=== PATIENT | female | born 2000 | race Caucasian/White ===

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

== ENCOUNTER 2022-11-06 22:53 | Inpatient (IN) | payer MEDICAID, OTHER ==
[2022-11-06 23:43] LABS: RUPTURE OF MEMBRANES PLUS POSITIVE (NEGATIVE)
[2022-11-07] MEDS ORDERED: TERBUTALINE 1 MG/ML VIAL SUBQ PRN (00:42)
[2022-11-07] MEDS ORDERED: SODIUM CHLORIDE FLUSH 0.9% 10 ML SYRINGE IVP PRN (00:42)
[2022-11-07] MEDS ORDERED: TRANEXAMIC ACID IN NACL 1,000 MG/100 ML BAG IV PRN (00:42)
[2022-11-07] MEDS ORDERED: CARBOPROST TROMETHAMINE 250 MCG/ML AMP IM PRN (00:42)
[2022-11-07] MEDS ORDERED: OXYTOCIN 10 UNIT/ML VIAL IM PRN (00:42)
[2022-11-07] MEDS ORDERED: miSOPROStoL 200 MCG TABLET PR PRN (00:42)
[2022-11-07] MEDS ORDERED: lidocaine 1% 20 ML MDV ID PRN (00:42)
[2022-11-07] MEDS ORDERED: LABETALOL 20 MG/4 ML SYRINGE IVP PRN ×3 (00:42)
[2022-11-07] MEDS ORDERED: hydrALAZINE INJ 20 MG/ML VIAL IVP PRN ×2 (00:42)
[2022-11-07] MEDS ORDERED: METHYLERGONOVINE 0.2 MG/ML VIAL IM PRN (00:42)
[2022-11-07] MEDS ORDERED: fentaNYL 100 MCG/2 ML VIAL IVP PRN (00:42)
[2022-11-07] MEDS ORDERED: NIFEdipine 10 MG CAPSULE PO PRN (00:42)
[2022-11-07] MEDS ORDERED: OXYTOCIN/SODIUM CHLORIDE 500 ML IV PRN (00:42)
[2022-11-07] MEDS ORDERED: AMPICILLIN 2 GM in SODIUM CHLORIDE 0.9% MINIBAG 100 ML IV ONE (00:42)
--- NOTE | 2022-11-07 00:42 | PROVIDER PROGRESS NOTE ---
- HPI Chief Complaint: Labor Current : Current EDU 11/29/22 Gestation 36 Weeks and 5 Days 1 Para 0 Vital Signs Temperature 37.5 C 11/06/22 23:14 Temperature 37.5 C 11/06/22 23:14 Heart Rate 90 11/06/22 23:51 Respiratory Rate 17 11/06/22 23:51 Blood Pressure 132/73 H 11/06/22 23:51 O2 Saturation If not protocol: Oxygen Flow, liters/minute - Procedures OB Procedure Performed: NST Diagnosis/Indication for NST: Other NST Procedure: NST Procedure Start Date 11/06/22 Start Time 23:08 Vibroacoustic Stimulation Used No Patient States Movement Yes - Plan Plan: Duyen presents to [facility] with c/o vaginal leakage of clear fluid. She reports initially thinking that she just had to urinate but then after voiding she continued to leak fluid every time she stood up. She denies contractions and reports +FM. She denies vaginal bleeding. NST reactive. FHR baseline 150s, moderate variability, + accels, no decels Contractions palpate mild every 2-4 minutes with soft resting tone ROM+ positive. Assessment: 22yo @ 36.6wks gestation PPROM GBS status unknown FHR Category I Plan: Admit to [facility] for expectant management. Intermittent heart rate auscultation Initial Ampicillin for GBS prophylaxis per protocol. Encouraged ambulation and position changes. Anticipate .
--- NOTE | 2022-11-07 00:47 | HISTORY & PHYSICAL EXAMINATION ---
Admit History - Visit Reason Visit Reason: Membranes rupture - : 1 Parity: 0 Premature: 0 Ectopic: 0 : 0 Care: positive: [facility] Risk/History: positive: None Complications This : positive: None Smoking Status: Never smoker - Mother's Labs Mother's Blood Type: positive: B Mother's RH: positive: Positive GBS: positive: Other Rubella Status: positive: Immune - HPI Diagnosis/Indication for NST: Other Current EDU 11/29/22 Gestation 36 Weeks and 5 Days 1 Para 0 Vital Signs Temperature 37.5 C 11/06/22 23:14 Temperature 37.5 C 11/06/22 23:14 Heart Rate 90 11/06/22 23:51 Respiratory Rate 17 11/06/22 23:51 Blood Pressure 132/73 H 11/06/22 23:51 O2 Saturation If not protocol: Oxygen Flow, liters/minute - NST Procedure NST Procedure Start Date 11/06/22 Start Time 23:08 Vibroacoustic Stimulation Used No Patient States Movement Yes Meds/Allgy - Home Medications Home Medications: Ambulatory Orders Medication Instructions Recorded Confirmed No Known Home Medications 06/20/15 06/20/15 - Allergies Allergies/Adverse Reactions: Allergies Allergy/AdvReac Type Severity Reaction Status Date / Time No Known Drug Allergies Allergy Verified 06/20/15 20:58 Review of Systems - Constitutional Constitutional: denies: Fever, Chills, Malaise - Eyes Eyes: denies: Blurred vision, Spots in vision, Dipolpia - Cardiovascular Cariovascular: denies: Irregular heart rate, Palpitations, Chest pain, Edema - Respiratory Respiratory: denies: Cough, Wheezing, SOB at rest - Gastrointestinal Gastrointestinal: denies: Constipation, Diarrhea, Nausea, Vomiting - Genitourinary Genitourinary: denies: Dysuria - Integumentary Integumentary: denies: Rash, Pruritis - Neurological Neurological: denies: Headache - Psychiatric Psychiatric: denies: Depression, Anxiety - Hematologic/Lymphatic Hematologic/Lymphatic: reports: Anemia Physical - Abdominal Exam Vital Signs: Temp Pulse Resp BP Pulse Ox O2 Flow Rate 37.5 C 90 17 132/73 H 11/06/22 23:14 11/06/22 23:51 11/06/22 23:51 11/06/22 23:51 Contraction Frequency (min/apart): 2-5 Contraction Intensity: positive: Mild Uterine Resting Tone: positive: Soft - Monitoring Heart Rate Baseline: 150 Strip Review: positive: Category I - Presentation Presentation: positive: Vertex - Vaginal Exam Membranes: positive: Membranes ruptured Dilation (in cm): 5 Effacement (%): 90 Station: positive: -2 Cervical Position: positive: Midposition - Speculum Exam Speculum Exam Performed: positive: No Findings: positive: Other Plan for Labor - Plan For Labor I expect patient to be DC'd or transferred within 96 hours.: Yes Plan for Labor: HPI: Duyen is a 22yo @ 36.6wks gestation by LMP c/w 9.3wk U/S who presents with c/o vaginal leakage of clear fluid. ROM+ was positive and she continues to leak clear fluid. She is found to contract every 2-5 minutes which palpate mild with soft resting tone. SVE 5/90/-1 and vertex with grossly ruptured membranes with clear fluid. FHR in Category I pattern. She has been a patient of [facility] since her transfer of care at 29wks gestation from [facility] [place] in [place]. She has received consistent care for the duration of her which has remained uncomplicated with the exception of anemia diagnosed with 28 week labs which she has been consistently taking oral iron supplementation to treat. She is supported by her partner Cedric today. She will be admitted to [facility] for expectant management. 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 SAB x 0. Denies history of gonorrhea, chlamydia, genital herpes, oral herpes or any other STI. Sexual partner does NOT have HSV (oral or genital). Medical Hx: Anemia, anxiety, depression, migraines Surgical Hx: Arthroscopic knee for torn patellar tendon Social Hx: Monogamous with male partner Cedric. She is not currently working. Stopped drinking alcohol due to . Denies current use of tobacco, marijuana or other recreational drugs. Reports that she is safe in current relationship. Family Hx: Denies family history of congenital anomalies, Cystic Fibrosis or chromosomal abnormalities; HTN- father; stroke - father; cancer - MGM, maternal aunt; thyroid disease - father, cousin; Depression and mental illness - mother, brothers; clotting disorder - maternal aunt Allergies: NKDA Medications: PNV, Ferrous sulfate once daily course: B positive, antibody negative Rubella immune Initial U/S @ 9.3wks c/w LMP dating Genetic screening - declined FAS WNL. Suboptimal visualization of cord insertion, facial profile, aortic arch, diaphragm, trachea, bladder. 3VC. Placenta anterior, no previa. Size c/w dating. COVID vaccine - declined Influenza vaccine - declined Tdap - 10/26/2022 Glucola 133 GBS - result pending (collected 11/05/2022) Physical exam: Normocephalic, atraumatic Heart RRR w/o M/G/R Lungs CTAB Abdomen gravid, soft, nontender EFW 2800g SVE 5/90/-1, posterior. vertex. Grossly ruptured membranes, clear fluid. FHR baseline 150, moderate variability, + accels, no decels Contractions palpate mild every 2-5 minutes with soft resting tone Bilateral LE's trace edema Mood is good Assessment: 22yo @ 36.6wks gestation by LMP c/w 9.3wk U/S PPROM GBS unknown FHR Category I Plan: Admit to [facility] for expectant management. Initiate Ampicillin for GBS prophylaxis per protocol. Intermittent heart rate auscultation. Encouraged ambulation and position changes. Nitrous PRN. Jacuzzi PRN. Epidural per maternal request. Repeat SVE in 12 hours or sooner PRN. Anticipate .
[2022-11-07] MEDS ORDERED: LACTATED RINGERS 1,000 ML IV ONE (01:41)
[2022-11-07] MEDS: LACTATED RINGERS 1,000 ML IV SCH ×2 (01:59→18:44)
[2022-11-07 02:07] LABS: BASOPHILS % (AUTO) 0.3 %; EOSINOPHILS % (AUTO) 0.4 %; HCT - HEMATOCRIT 22.2 % (37.0-47.0); LYMPHOCYTES # (AUTO) 1.9 10^3/uL (1.5-3.5); LYMPHOCYTES % (AUTO) 20.1 %; MEAN CORPUSCULAR HGB CONC 30.2 g/dL (32.0-36.0); MEAN CORPUSCULAR VOLUME 76.3 fL (81.0-99.0); MEAN PLATELET VOLUME 10.1 fL (7.9-10.8); MONOCYTES # (AUTO) 0.8 10^3/uL (0.0-1.0); MONOCYTES % (AUTO) 8.6 %; NEUTROPHILS # (AUTO) 6.5 10^3/uL (1.5-6.6); NEUTROPHILS % (AUTO) 68.9 %; PLT - PLATELET COUNT 280 10^3/uL (130-450); RED BLOOD COUNT 2.91 10^6/uL (4.20-5.40); RED CELL DISTRIBUTION WIDTH 15.9 % (12.0-15.0); WHITE BLOOD COUNT 9.5 x10^3/uL (4.8-10.8)
[2022-11-07 02:15] LABS: HGB - HEMOGLOBIN 6.7 g/dL (12.0-16.0)
[2022-11-07] MEDS: SODIUM CHLORIDE FLUSH 0.9% 10 ML SYRINGE IVP SCH (05:40)
[2022-11-07] MEDS: AMPICILLIN 1 GM in SODIUM CHLORIDE 0.9% MINIBAG 100 ML IV SCH ×2 (05:41→09:20)
--- NOTE | 2022-11-07 08:57 | PROVIDER PROGRESS NOTE ---
Labor Progress Note - Uterine Monitoring Uterine Monitoring Mode: positive: External toco Contraction Intensity: positive: Mild - Monitoring Monitor Mode: positive: External ultrasound Heart Rate Baseline: 140 Heart Rate Variability: positive: Moderate (6-25 bmp) Accelerations: positive: Present, 15x15 Decelerations: positive: None - Labor Progress Note Labor Progress Note/Additional Text: S: Patient has been feeling occasional contractions that she describes as mild. She denies feeling consistent discomfort. Has continued to leak clear fluid throughout the night. She is feeling somewhat tired secondary to her inability to get sleep due to being nervous. Her mood is good and her partner Cedric is supportive at the bedside. O: FHR baseline 140s, moderate variability, + accels, no decels Contractions palpate mild intermittently with soft resting tone. SVE deferred PPROM x 12 hours A: 22yo @ 36.6wks gestation by LMP c/w 9.3 wk U/S PPROM Severe anemia GBS status unknown, results pending FHR Category I P: Continue expectant management x 3 hours followed by initiate of pitocin for labor augmentation. Initiate once daily IV iron infusion secondary to severe anemia. Intermittent monitoring until initiation of pitocin. Continue ampicillin for GBS prophylaxis per protocol. 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 Encouraged ambulation and position changes. Nitrous oxide PRN. Jacuzzi PRN. Epidural per maternal request. Anticipate .
[2022-11-07] MEDS ORDERED: FERRIC GLUCONATE 125 MG in SODIUM CHLORIDE 0.9% 100ML 100 ML IV ONE (09:30)
[2022-11-07] MEDS ORDERED: OXYTOCIN/SODIUM CHLORIDE 500 ML IV SCH (12:00)
--- NOTE | 2022-11-07 12:43 | PROVIDER PROGRESS NOTE ---
Labor Progress Note - Uterine Monitoring Uterine Monitoring Mode: positive: Palpation Contraction Frequency (min/apart): 2-3 Contraction Intensity: positive: Mild to moderate Uterine Resting Tone: positive: Soft - Monitoring Monitor Mode: positive: External ultrasound Heart Rate Baseline: 140 Decelerations: positive: None Strip Review: positive: Category I - Labor Progress Note Labor Progress Note/Additional Text: S: Pt bouncing on the ball at the bedside and reports that the contractions are noticable now and she is breathing through them. Her is supportive at the bedside. O: SVE deferred. GBS returned negative - Ampicillin discontinued A: 22yo @ 36.6wks gestation PPROM GBS neg Severe anemia FHR category I P: Continue expectant management x 2 hours and repeat SVE. Initiate pitocin at that time if no cervical change. Intermittent heart rate auscultation until initiation of pitocin. Encouraged ambulation and position changes. Jacuzzi PRN. Nitrous oxide PRN. Epidural per maternal request. Anticipate .
--- NOTE | 2022-11-08 04:13 | DELIVERY NOTE ---
Delivery Note - Labor Labor: positive: Augmented by oxytocin - Delivery Method Delivery Method: positive: Spontaneous vaginal delivery - Presentation Presentation: positive: Vertex, Compound, ANNA - left occiput anterior - Nuchal Cord Nuchal Cord: positive: None - Episiotomy Type Episiotomy Type: positive: None - Laceration Laceration: positive: 2nd degree, Perineal, Vaginal - Suture Suture Type: positive: Vicryl Suture Size: positive: 2-0 - Delivery Outcome Delivery Outcome: positive: Livebirth - [place]: positive: Placed in direct skin contact with mother, Suctioned, Bulb syringe, Stimulated, Warmed, Qulin used, Warmer used [place] sex: positive: Female - Cord Cord: positive: 3 vessels - Placenta Placenta: positive: Intact, Spontaneous - Estimated Blood Loss Estimated Blood Loss (in cc): 805 (QBL) - Post Delivery Events Post Delivery Events: positive: No post delivery events - Delivery Comments (Free Text/Narrative) Delivery Comments (Free Text/Narrative): Labor: This 22yo @ 37.0wks gestation by LMP c/w 9.3wk U/S presented to [facility] with PPROM that occurred on 11/06/2022 @ 2030. Cervix was 5/90/-1 and vertex. FHR pattern demonstrated a Category I pattern throughout labor. Normal labor course. Pitocin initiated for labor augmentation with a maximum infusion rate of 16mU/mL. Pt progressed to c/c/+2 at 0147 with onset of active pushing at 0206. : Normal SVB of viable female infant on 11/08/2022 @ 0252. No nuchal cord. The was placed on maternal abdomen, stimulated, dried, and placed skin to skin. Secondary to increased respiratory effort the was moved to [facility] for evaluation. 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 's were 6/8 at 1 and 5 minutes respectively. Pitocin administered via IV for hemostasis. The umbilical cord was allowed to stop pulsating at which time it was doubly clamped by CNM and cut by FOB. Cord blood was obtained. 3VC. Fundal massage and gentle cord traction applied for active management of the third stage. Placenta delivered spontaneously and intact at 0258 with trailing membranes. 800mcg BC misoprostol administered. QBL 802mL. Fourth stage: Uterine fundus firm and there is no excessive bleeding. The perineum, vagina, and cervix were inspected and found to have 2nd degree perineal/ vaginal laceration which was repaired using a 2-[address]-1 needle in standard fashion and under sterile conditions. Vaginal and rectal examination following repair was performed. Tissues well approximated. Mother in stable condition. Infant in stable condition in nursery in care of pediatric provider.
--- NOTE | 2022-11-08 04:17 | PROVIDER PROGRESS NOTE ---
Labor Progress Note - Uterine Monitoring Uterine Monitoring Mode: positive: External toco Contraction Frequency (min/apart): intermittent Contraction Intensity: positive: Mild to moderate Uterine Resting Tone: positive: Soft - Monitoring Monitor Mode: positive: External ultrasound Heart Rate Baseline: 140 Heart Rate Variability: positive: Moderate (6-25 bmp) Accelerations: positive: Present, 15x15 Decelerations: positive: None Strip Review: positive: Category I - Vaginal Exam Dilation (in cm): 6 Effacement (%): 90 Station: -1 Cervical Position: Midposition - Labor Progress Note Labor Progress Note/Additional Text: S: Patient continues to feel intermittent contractions and is coping well. She feels like she occasionally has a contraction that is more intense but not consistently. She continues to leak clear vaginal fluid. Her is supportive at the bedside. O: FHR baseline 140s, moderate variability, + accels, no decels Contractions palpate mild to moderate intermittently with soft resting tone SVE 6/90/-1, midposition, vertex. PPROM x 22 hours A: 22yo @ 36.6wks gestation PPROM Severe anemia FHR Category I GBS negative P: Initiate pitocin now with titration per protocol for augmentation of labor. Continuous monitoring. Encouraged continued ambulation and position changes. Nitrous oxide PRN. Jacuzzi PRN. Epidural per maternal request. Anticipate .
[2022-11-08] MEDS ORDERED: WITCH HAZEL/GLYCERIN 1 PAD TOP PRN (04:22)
[2022-11-08] MEDS ORDERED: HYDROCORTISONE 1% CREAM 28 GM TUBE PR PRN (04:22)
[2022-11-08] MEDS ORDERED: IBUPROFEN 200 MG/10 ML UDC PO PRN (04:23)
[2022-11-08] MEDS ORDERED: IBUPROFEN 600 MG TABLET PO PRN (04:31)
[2022-11-08] MEDS: ACETAMINOPHEN 160 MG/5 ML SUSP UDC PO PRN (04:58)
[2022-11-08] MEDS: SODIUM CHLORIDE FLUSH 0.9% 10 ML SYRINGE IVP SCH ×2 (05:05→06:13)
[2022-11-08] MEDS: DOCUSATE SODIUM 100 MG CAPSULE PO SCH (11:10)
[2022-11-08] MEDS: IBUPROFEN 200 MG/10 ML UDC PO PRN (12:34)
[2022-11-08] MEDS ORDERED: LACTATED RINGERS 1,000 ML IV ONE (14:00)
[2022-11-08 14:21] LABS: BASOPHILS % (AUTO) 0.3 %; EOSINOPHILS % (AUTO) 0.1 %; HCT - HEMATOCRIT 20.1 % (37.0-47.0); LYMPHOCYTES # (AUTO) 1.6 10^3/uL (1.5-3.5); LYMPHOCYTES % (AUTO) 11.1 %; MEAN CORPUSCULAR HEMOGLOBIN 23.4 pg (27.0-31.0); MEAN CORPUSCULAR HGB CONC 29.9 g/dL (32.0-36.0); MEAN CORPUSCULAR VOLUME 78.5 fL (81.0-99.0); MEAN PLATELET VOLUME 9.8 fL (7.9-10.8); MONOCYTES # (AUTO) 1.1 10^3/uL (0.0-1.0); MONOCYTES % (AUTO) 7.3 %; NEUTROPHILS # (AUTO) 11.8 10^3/uL (1.5-6.6); NEUTROPHILS % (AUTO) 79.8 %; NRBC ABSOLUTE COUNT (AUTO) 0.03 x10^3/uL; NUCLEATED RED BLOOD CELLS AUTO 0.2 /100WBC; PLT - PLATELET COUNT 210 10^3/uL (130-450); RED BLOOD COUNT 2.56 10^6/uL (4.20-5.40); RED CELL DISTRIBUTION WIDTH 16.4 % (12.0-15.0); WHITE BLOOD COUNT 14.8 x10^3/uL (4.8-10.8)
[2022-11-08] MEDS ORDERED: FERRIC GLUCONATE 125 MG in SODIUM CHLORIDE 0.9% 100ML 100 ML IV ONE (14:30)
--- NOTE | 2022-11-08 19:47 | PROVIDER PROGRESS NOTE ---
Subjective - Subjective Subjective: S:Patient sitting up in bed eating dinner with her family. She is feeling well. Earlier this afternoon she experienced mild lightheadedness when she was sitting up visiting her in the nursery. Her BP and HR were WNL at that time. She received 250mL IV fluid bolus and a second iron infusion and reports that helped her feel significantly better. She is bonding well with her baby who is now rooming in with her. She is ambulating and tolerating a regular diet. She is urinating without difficulty and her lochia is normal. Her pain is well controlled with oral medications. Her , mother, and father are present at the bedside. O: See VS - WNL. Heart RRR w/o M/G/R, lungs CTAB, abdomen soft and nontender with fundus firm at U, perineum intact, repair with mild edema, light lochia rubra, bilateral LE's trace edema. Mood is good. Admit Hgb/Hct: 6.7/22.2 Repeat today: 6.0/20.1 A: 22yo -->P1 day of delivery 2nd degree perineal laceration intact Severe anemia P: Continue routine care and medications. Initiate IV iron infusion tomorrow and following can d/c IV. Objective - Vital Signs/Intake & Output Vital Signs: Vital Signs x48h Temp Pulse Resp BP Pulse Ox 11/08/22 16:00 37.1 C 76 18 116/62 11/08/22 13:00 36.7 C 98 18 113/57 L 100 Intake & Output: Intake & Output 11/05/22 11/06/22 11/07/22 11/08/22 23:59 23:59 23:59 23:59 Intake Total 9597.223 4059.050 Output Total 400 Balance 1882.242 2432.050 - Lab Results Fish Bones: 11/08/22 13:56 Other Labs: Lab Results x24hrs 11/08/22 Range/Units 13:56 WBC 14.8 H (4.8-10.8) x10^3/uL RBC 2.56 L (4.20-5.40) 10^6/uL Hgb 6.0 L* (12.0-16.0) g/dL Hct 20.1 L (37.0-47.0) % MCV 78.5 L (81.0-99.0) fL MCH 23.4 L (27.0-31.0) pg MCHC 29.9 L (32.0-36.0) g/dL RDW 16.4 H (12.0-15.0) % Plt Count 210 (130-450) 10^3/uL MPV 9.8 (7.9-10.8) fL Neut # (Auto) 11.8 H (1.5-6.6) 10^3/uL Lymph # (Auto) 1.6 (1.5-3.5) 10^3/uL [place] # (Auto) 1.1 H (0.0-1.0) 10^3/uL Eos # (Auto) 0.0 (0.0-0.7) 10^3/uL Baso # (Auto) 0.0 (0.0-0.1) 10^3/uL Absolute Nucleated RBC 0.03 x10^3/uL Nucleated RBC % 0.2 /100WBC
[2022-11-09] MEDS: IBUPROFEN 200 MG/10 ML UDC PO PRN ×4 (02:21→21:02)
[2022-11-09 07:12] LABS: BASOPHILS # (AUTO) 0.1 10^3/uL (0.0-0.1); BASOPHILS % (AUTO) 0.3 %; EOSINOPHILS % (AUTO) 0.2 %; HCT - HEMATOCRIT 20.3 % (37.0-47.0); MEAN CORPUSCULAR HEMOGLOBIN 23.3 pg (27.0-31.0); MEAN CORPUSCULAR HGB CONC 29.6 g/dL (32.0-36.0); MEAN PLATELET VOLUME 9.8 fL (7.9-10.8); MONOCYTES # (AUTO) 1.1 10^3/uL (0.0-1.0); MONOCYTES % (AUTO) 7.2 %; NEUTROPHILS # (AUTO) 11.7 10^3/uL (1.5-6.6); NEUTROPHILS % (AUTO) 76.1 %; NRBC ABSOLUTE COUNT (AUTO) 0.04 x10^3/uL; NUCLEATED RED BLOOD CELLS AUTO 0.3 /100WBC; PLT - PLATELET COUNT 203 10^3/uL (130-450); RED BLOOD COUNT 2.57 10^6/uL (4.20-5.40); RED CELL DISTRIBUTION WIDTH 16.3 % (12.0-15.0); WHITE BLOOD COUNT 15.4 x10^3/uL (4.8-10.8)
[2022-11-09] MEDS ORDERED: FERRIC GLUCONATE 125 MG in SODIUM CHLORIDE 0.9% 100ML 100 ML IV ONE (12:00)
[2022-11-09] MEDS: ACETAMINOPHEN 160 MG/5 ML SUSP UDC PO PRN (15:11)
[2022-11-09] MEDS: DOCUSATE SODIUM 100 MG CAPSULE PO SCH (20:58)
[2022-11-10] MEDS: ACETAMINOPHEN 160 MG/5 ML SUSP UDC PO PRN (00:13)
[2022-11-10] MEDS: IBUPROFEN 200 MG/10 ML UDC PO PRN ×2 (03:05→09:49)
--- NOTE | 2022-11-10 06:45 | PROVIDER PROGRESS NOTE ---
Subjective - Subjective Subjective: S:Patient up to the bathroom upon my arrival She is feeling well. She has not experienced any additional episodes of lightheadedness and is overall feeling very well. She does express that she is feeling ready to go home. She is ambulating and tolerating a regular diet. She is urinating without difficulty and her lochia is normal. Her pain is well controlled with oral medications. Her is supportive at the bedside. O: See VS - WNL. Heart RRR w/o M/G/R, lungs CTAB, abdomen soft and nontender with fundus firm at U-2, perineum intact, repair with mild edema, light lochia r ubra, bilateral LE's trace edema. Mood is good. Hgb/Hct - stable S/p 3 IV ferric gluconate infusions A: 22yo -->P1 day of delivery 2nd degree perineal laceration intact Severe anemia P: Continue routine care and medications. Initiate IV iron infusion and following can d/c IV. Evaluation for discharge home tomorrow. Objective - Vital Signs/Intake & Output Vital Signs: Vital Signs x48h Temp Pulse Resp BP Pulse Ox 11/10/22 00:08 36.9 C 93 17 110/55 L 99 Intake & Output: Intake & Output 11/07/22 11/08/22 11/09/22 11/10/22 23:59 23:59 23:59 23:59 Intake Total 5594.815 2351.050 Output Total 400 Balance 3150.994 1905.050 - Lab Results Fish Bones: 11/09/22 06:41 Other Labs: Lab Results x24hrs 11/09/22 Range/Units 06:41 WBC 15.4 H (4.8-10.8) x10^3/uL RBC 2.57 L (4.20-5.40) 10^6/uL Hgb 6.0 L* (12.0-16.0) g/dL Hct 20.3 L (37.0-47.0) % MCV 79.0 L (81.0-99.0) fL MCH 23.3 L (27.0-31.0) pg MCHC 29.6 L (32.0-36.0) g/dL RDW 16.3 H (12.0-15.0) % Plt Count 203 (130-450) 10^3/uL MPV 9.8 (7.9-10.8) fL Neut # (Auto) 11.7 H (1.5-6.6) 10^3/uL Lymph # (Auto) 2.0 (1.5-3.5) 10^3/uL [place] # (Auto) 1.1 H (0.0-1.0) 10^3/uL Eos # (Auto) 0.0 (0.0-0.7) 10^3/uL Baso # (Auto) 0.1 (0.0-0.1) 10^3/uL Absolute Nucleated RBC 0.04 x10^3/uL Nucleated RBC % 0.3 /100WBC
--- NOTE | 2022-11-10 08:48 | Discharge Plan ---
Discharge Plan Problem Reviewed?: Yes Disposition: Home, Self Care Condition: Good Diet: Regular Activity Restrictions: No Restrictions Shower Restrictions: No Driving Restrictions: No Weight Bearing: Full Weight Instruction Topics: Vaginal After No Smoking: If you smoke, Please STOP! Call for help. Follow-up with: Lilli Scott CNM, ARNP [Primary Care Provider] - 1 Week (November 18 @ 2:00pm with [facility] in [place])
--- NOTE | 2022-11-10 09:10 | DISCHARGE SUMMARY ---
Discharge Summary Condition at Discharge: Good Discharge Disposition: 01 Home, Self Care - HOSPITAL COURSE Hospital Course: Date of Admission: 11/07/2022 Date of Discharge: 11/10/2022 Diagnosis on Admission: 1. 22yo @ 36.6wks gestation by LMP c/w 9.3wk U/S 2. PPROM 3. GBS unknown 4. FHR Category I Diagnosis on Discharge: 1. 22yo PPD#2 s/p TSVB viable female 2. 3. Normal recovery Brief History: [facility] who presented on 11/07/2022 with premature rupture of membranes at 36.6wks gestation. Cervix was 5/90/-1 and vertex with grossly ruptured membranes and clear fluid. Pitocin was initiated for labor augmentation with titration per protocol for a maximum infusion rate of 16mU/mL. She progressed to spontaneously deliver a viable female on 11/08/2022 @ 0252. Apgars were 6/8 at 1 and 5 minutes respectively. QBL 802mL. 2nd degree perineal laceration was repaired using a 2-[address]-1 needle in standard fashion and under sterile conditions. She has been doing well in her course following initially symptomatic severe anemia. She was given 3 total IV iron infusions and pt reports feeling improved. Her Hgb/Hct have remained stable. She will be discharged home today on day #2 with instructions to continue taking her vitamin while , continue taking oral iron supplement three times daily, and continue taking ibuprofen and tylenol over the counter as needed for pain management. She intends to follow up with myself in 1 week for routine care or sooner if needed. She has been given precautions to call if she has any worsening fevers, chills, abdominal pain, increased vaginal bleeding or foul smelling vaginal lochia. Physical exam: Normocephalic, atraumatic, heart RRR w/o M/G/R, lungs CTAB, abdomen soft and nontender, fundus firm at U-2, perineum intact, light lochia rubra, perineum intact, repair with mild edema, bilateral LE's trace edema. - ALLERGIES Allergies/Adverse Reactions: Allergies Allergy/AdvReac Type Severity Reaction Status Date / Time No Known Drug Allergies Allergy Verified 06/20/15 20:58 - MEDICATIONS Home Medications: Ambulatory Orders Medication Instructions Recorded Confirmed No Known Home Medications 06/20/15 06/20/15 - LABS Result Diagrams: 11/09/22 06:41
[2022-11-10 09:39] VITALS: BP 113/61
--- NOTE | 2022-11-10 16:05 | Labor Flowsheet ---
Labor Flowsheet Datetime Report Generated by CPN: 11/10/2022 16:05 Datetime: 11/10/2022 09:37 VITAL SIGNS NBP Sys/Mila/Mean (mmHg): 113 : 61 : 73 Pulse: 69 Datetime: 11/09/2022 19:45 SpO2 (%): 100 Datetime: 11/08/2022 03:00 UTERINE ACTIVITY Monitor Mode: Palpation Frequency (min): 2 Quality: Strong Pattern: Normal: <= 5 Contractions in 10 Minutes Resting Tone (Palpate): Relaxed Comments: interrupted strip, occasional maternal reading Datetime: 11/08/2022 02:52 Stage of : Datetime: 11/08/2022 02:45 Pitocin Checklist: No More than 5 Uterine Contractions in 10 Minutes for any 20 Minute Interval; Ut erus Palpates Soft between Contractions FHR Baseline Rate : 140 Patient Position/Activity: Right Tilt STAGE 2 Pushing: Coached on Pushing Pushing Position: Pushing Right Side Pushing Progress: Descent with Pushing Datetime: 11/08/2022 02:30 Pain Type: Contraction Pain Location: Sacrum Pain Relief Measures: Comfort Measures Comfort Measures: Coaching; Family Support LaborFlag: Labor Datetime: 11/08/2022 02:15 Contraction Comments: interupted strip, UCs monitored at bedside Pain Coping: Breathing Through Contractions; Crying; Writhing Datetime: 11/08/2022 02:06 Stage 2 Comments: Pt still on hands and knees position COMMUNICATION Communication: Provider at Bedside Datetime: 11/08/2022 02:00 Pain Assessment Comments: Applying sacral counter pressure during each UC Datetime: 11/08/2022 01:51 Communication Comments: Reported station, provider coming in. Datetime: 11/08/2022 01:47 VAGINAL EXAM Dilatation (cm): 10.0 Station: 2 Exam by: CSami De La Fuente, RN Datetime: 11/08/2022 01:45 Monitor Interventions for UA: [place] Adjusted ASSESSMENT A Monitor Mode: Telemetry Variability: Moderate 6-25 bpm Accelerations: 15X15 Decelerations: None Category: Category I Datetime: 11/08/2022 01:42 Patient Care Comments: Pt states she has the urge to have abowel movement Datetime: 11/08/2022 01:15 Duration (sec): 70-120 Datetime: 11/08/2022 01:09 Notification Reason: Status Update; Labor Status; Pain Datetime: 11/08/2022 01:00 Respirations: 22 Temperature (C): 37.3 Temperature Route: Oral Datetime: 11/08/2022 00:42 Plan of Care: Plan of Care Discussed Pain Management: Comfort Measures Datetime: 11/08/2022 00:19 PAIN Pain Scale: 7 Pain Presence: Intermittent Datetime: 11/08/2022 00:05 I/O Interventions: Up to BR Datetime: 11/07/2022 23:45 Actions for Decelerations: Other Datetime: 11/07/2022 23:26 MEDICATIONS Pitocin (milliunits): Increased to @ 16 Datetime: 11/07/2022 22:00 FHR Baseline Changes: No Baseline Change Datetime: 11/07/2022 19:00 Oxygen Method: Room Air Datetime: 11/07/2022 18:46 PATIENT CARE IV/Blood Work: New IV Bag Hung Datetime: 11/07/2022 14:30 MONTEVIDEO UNITS (Computed) Contractions in Ten Minutes: 1 Datetime: 11/07/2022 14:00 Effacement (%): 90 Membrane Status: Ruptured Membranes Ruptured Date/Time: 11/06/2022 20:00 Datetime: 11/07/2022 11:00 ASSESSMENT B FHR Baseline Rate : 140 Datetime: 11/07/2022 09:50 Antibiotics: Ampicillin IV 1 Gm Datetime: 11/07/2022 07:58 MATERNAL ASSESSMENT Level of Consciousness: Alert Headache: Denies RUQ Epigastric Pain: Denies Datetime: 11/07/2022 00:35 DTR's/Clonus: DTRs 2+ Breath Sounds, Left: Clear and Equal Breath Sounds, Right: Clear and Equal Nausea/Vomiting: Denies TEACHING Instructional Method: Verbal; Patient Instructed; Family/Support Person Instructed; Verbalized Unde rstanding Medications: Antibiotics Related: Hydration; Activity and Rest Datetime: 11/07/2022 00:12 Membranes Rupture Method: Spontaneous Amniotic Fluid Color: Clear Amniotic Fluid Amount: Small Amniotic Fluid Odor: None Vaginal Bleeding: Small Datetime: 11/06/2022 23:12 Pain Goal: 7
== END 2022-11-10 16:03 | disposition home or self-care (01) | DRG 807 ==
LOC: WFO 22:53 → FBP 22:59 → WFO 11-07 00:41 → FBP 11-07 00:42
PROVIDERS: ADMIT Nurse Practitioner Obstetrics & Gynecology; ATTEND Nurse Practitioner Obstetrics & Gynecology
PROC: 10E0XZZ Delivery of Products of Conception, External Approach (ICD-10-PCS; principal; 2022-11-08)
PROC: 0KQM0ZZ Repair Perineum Muscle, Open Approach (ICD-10-PCS; 2022-11-08)
DX: O42.013 Preterm premature rupture of membranes, onset of labor within 24 hours of rupture, third trimester (principal); Z37.0 Single live birth; O70.1 Second degree perineal laceration during delivery; Z3A.37 37 weeks gestation of pregnancy; O99.02 Anemia complicating childbirth; D64.9 Anemia, unspecified
CPT/HCPCS: 36415; 84112; 85025; 86850; 86900; 86901; 86920; 99215; A9270; J2210; J2916; J7120; 59025